=== PATIENT | female | born 1960 | race Caucasian/White ===

== ENCOUNTER → 2019-03-04 11:06 | Outpatient (CLI) | payer OTHER ==
--- NOTE | 2019-03-06 08:42 | EC ---
PATIENT:LEESA SALGUERO DATE OF SERVICE: 03/04/19 SEX: F MEDICAL RECORD: [id number] DATE OF : 62 [facility] AGE OF PATIENT: 58 ADMISSION DATE: 03/04/19 REFERRING PHYSICIAN: INTERPRETING PHYSICIAN: TARYN BARRY MD ECHOCARDIOGRAM REPORT ECHO CHARGES 4 ECHO COMPLETE Date: 03/04/19 CLINICAL DIAGNOSIS: MURMUR ECHOCARDIOGRAPHIC MEASUREMENTS (adult normal given) AC root (d.<3.7cm) 2.9 cm LV Septum d (<1.2 cm> 1.1 cm Valve Excursion 1.7 cm LV Septum (systole) 1.3 cm Left Atria (s.<4.0cm> 3.3 cm LVPW d(<1.2cm) 1.2 cm RV (d.<2.3cm) 3.3 cm LVPW (sytole) 1.9 cm LV diastole(<5.6CM) 4.5 cm MV E-F(>70mm/sec) cm LV systole 2.5 cm LVOT Diameter 1.8 cm MV exc.(>10mm) 1.0 cm Est.ejection fraction (50-75%) % DOPPLER: LVIT cm/sec A 74.0 cm/sec E 94.0 cm/sec LA cm/sec RVSP 17 mmHg LVOT 96 cm/sec AOP1/2T 760 m/s Asc. 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 Alvarez TAPE# PACS Pericardial Effusion N DATE OF SERVICE: Adequate 2D, color flow, spectral Doppler, and M-mode. No LVH. LV internal dimensions are normal. Wall motion is normal. EF is greater than or equal to 55%. Aortic valve is tricuspid. There is no evidence of stenosis by Doppler interrogation. Left atrium is normal. Mitral valve shows no prolapse. Trace MR. Right-sided chambers grossly normal. Trace TR. TRANSINT:[id number] Voice Confirmation ID: [id number] DOCUMENT ID: [id number] ECHOCARDIOGRAM REPORT [id number] LEESA SALGUERO TARYN BARRY MD at 0842 CC: [id number] DICTATION DATE: 03/05/19 1244 CASE MANAGERS: 03/05/19 1309 DEP CLI 03/04/19 [id number] [place] [address]
--- NOTE | 2019-03-19 14:31 | ST ---
PATIENT:LEESA SALGUERO MEDICAL RECORD: [id number] SEX: F LOCATION:[facility] ORDER #: ADMISSION DATE: 03/04/19 AGE OF PATIENT: 58 REFERRING PHYSICIAN: INTERPRETING PHYSICIAN: GAMA CURRIE MD DATE OF SERVICE: PROCEDURE: Nuclear stress test. INDICATION: Angina. She was exercised on standard Lexiscan protocol with 33 mCi of sestamibi injected at peak stress, 11 mCi used previously for rest images. FINDINGS: Gated SPECT reveals preserved ejection fraction at 80% with good wall motion and thickening and brightening throughout all segments. SPECT imaging Cardiolite was used as myocardial fusion agent. There is homogeneous uptake throughout all segments at rest and stress with no evidence of inducible ischemia or previous infarction. OVERALL IMPRESSION: 1. This is a normal nuclear stress test with no evidence of inducible ischemia or previous infarction. 2. Gated SPECT reveals a preserved ejection fraction at 80%. In this patient with ongoing symptomatology, the current scan does not suggest the presence of hemodynamically significant coronary artery disease. Evaluate noncardiac etiology of chest pain. TRANSINT:[id number] Voice Confirmation ID: [id number] DOCUMENT ID: [id number] GAMA CURRIE MD at 1431 CC: ROD FULLER MD [id number] DICTATION DATE: 03/07/19 1037 CHRONOMETER TESTER: 03/08/[address] [facility] CLI 03/04/[address] [id number]
== END | disposition home or self-care (01) ==
LOC: D.HCCARDIO 11:06
PROVIDERS: ATTEND Internal Medicine Interventional Cardiology
DX: R01.1 Cardiac murmur, unspecified (principal); R00.2 Palpitations

== ENCOUNTER → 2019-12-17 12:33 | Outpatient (CLI) | payer OTHER | END | disposition home or self-care (01) | LOC: D.MRI 12:33 | PROVIDERS: ATTEND Orthopaedic Surgery | DX: M25.511 Pain in right shoulder (principal) ==